=== PATIENT | female | born 1995 | race Caucasian/White ===

== ENCOUNTER 2017-07-11 10:39 | Emergency (ER) | payer MEDICAID ==
[2017-07-11 10:47] VITALS: BP 99/67; PULSE 75; RESP 18; TEMP 98.1; O2SAT 98
--- NOTE | 2017-07-11 11:25 | C.PDOC ---
History Of Present Illness 22 y/o female presents to ED with body aches, headache, nasal congestion and cough for 3 days. Patient reports fever, chills and nausea for first 2 days but resolved now. Patient reports taking Nyquil with mild improvement, last taken yesterday. Patient denies recent travel, vomiting, diarrhea or any other complaints at this time. Time Seen by Provider: 07/11/17 11:10 Chief Complaint (Nursing): Flu-like Symptoms History Per: Patient History/Exam Limitations: no limitations Onset/Duration Of Symptoms: Days Current Symptoms Are (Timing): Still Present Past Medical History Reviewed: Historical Data, Nursing Documentation, Vital Signs Vital Signs: Last Vital Signs Temp 98.1 F 07/11/17 10:46 Pulse 75 07/11/17 10:46 Resp 18 07/11/17 10:46 BP 99/67 L 07/11/17 10:46 Pulse Ox 98 07/11/17 11:55 - Medical History PMH: Depression Surgical History: No Surg Hx - [facility] Procedures INDIVIDUAL PSYCHOTHERAPY, SUPPORTIVE (03/19/16) MEDICATION MANAGEMENT (03/19/16) Family History: States: No Known Family Hx - Social History Hx Alcohol Use: No Hx Substance Use: No - Immunization History Hx Tetanus Toxoid Vaccination: No Hx Influenza Vaccination: No Hx Pneumococcal Vaccination: No Review Of Systems Constitutional: Positive for: Fever, Chills Respiratory: Positive for: Cough. Negative for: Shortness of Breath Gastrointestinal: Positive for: Nausea. Negative for: Vomiting, Abdominal Pain , Diarrhea Skin: Negative for: Rash Neurological: Positive for: Headache. Negative for: Weakness, Numbness Physical Exam - Physical Exam Appears: Non-toxic, No Acute Distress, Other (Watery Eyes, "Flu- like") Skin: Warm, Dry, No Rash Head: Atraumatic, Normacephalic Eye(s): bilateral: Normal Inspection Ear(s): Bilateral: Normal Nose: Other (Congested) Oral Mucosa: Moist Throat: Normal, No Erythema, No Exudate Neck: Supple Cardiovascular: Rhythm Regular Respiratory: Normal Breath Sounds, No Rales, No Rhonchi, No Wheezing Gastrointestinal/Abdominal: Soft, No Tenderness, No Guarding, No Rebound Neurological/Psych: Oriented x3 ED Course And Treatment O2 Sat by Pulse Oximetry: 98 (RA) Pulse Ox Interpretation: Normal Medical Decision Making Medical Decision Making: Plan: Motrin, Tylenol and Tamaflu administered Disposition Counseled Patient/Family Regarding: Diagnosis, Need For Followup, Rx Given - Disposition Referrals: [facility] [Outside] Disposition: HOME/ ROUTINE Disposition Time: 11:53 Condition: STABLE Prescriptions: Ibuprofen [Motrin] 1 tab PO TID PRN #30 tab PRN Reason: Pain Oseltamivir [Tamiflu] 1 cap PO BID #10 cap Instructions: Influenza (ED) Forms: General Discharge Instructions, [facility] (Salvadorean), School Excuse - POA Present On Arrival: None - Clinical Impression Clinical Impression: Influenza-like illness - Scribe Statement The provider has reviewed the documentation as recorded by the Scribtavia Wilson All medical record entries made by the Juanibtavia were at my direction and personally dictated by me. I have reviewed the chart and agree that the record accurately reflects my personal performance of the history, physical exam, medical decision making, and the department course for this patient. I have also personally directed, reviewed, and agree with the discharge instructions and disposition.
== END 2017-07-11 12:04 | disposition home or self-care (01) ==
LOC: C.ER 10:39
DX: J11.1 Influenza due to unidentified influenza virus with other respiratory manifestations (principal)